=== PATIENT | male | born 1985 ===

== ENCOUNTER 2021-10-04 06:15 | Emergency (ER) | payer MEDICAID, OTHER ==
[~2021-10-04] VITALS: Ht 175.3 cm; Wt 90.7 kg
[2021-10-04 06:26] VITALS: BP 136/92
== END 2021-10-04 08:47 | disposition home or self-care (01) ==
LOC: ER 06:15
DX: S00.03XA Contusion of scalp, initial encounter (principal); R04.0 Epistaxis; F17.210 Nicotine dependence, cigarettes, uncomplicated; Y04.2XXA Assault by strike against or bumped into by another person, initial encounter; Y93.89 Activity, other specified; Y92.89 Other specified places as the place of occurrence of the external cause; Y99.8 Other external cause status
CPT/HCPCS: 70450